=== PATIENT | male | born 1970 | race Caucasian/White ===

== ENCOUNTER 2024-04-23 19:56 | Observation (INO) | payer BC ==
[~2024-04-23] VITALS: Ht 182.9 cm; Wt 94.6 kg
[2024-04-23 21:04] LABS: BASO # 0.1 10^3/uL (0.0-0.2); BASO % 1.4 % (0.0-1.0); EOS # 0.2 10^3/uL (0.0-0.5); EOS % 2.8 % (0.0-3.0); HEMATOCRIT 43.7 % (42.0-52.0); HEMOGLOBIN 15.4 g/dl (13.5-17.5); LYMPH % 35.3 % (24.0-44.0); MEAN CORPUSCULAR HGB CONC 35.2 g/dl (32.0-36.5); MEAN CORPUSCULAR VOLUME 93.8 fl (80.0-96.0); MONO # 0.7 10^3/uL (0.0-0.8); MONO % 8.2 % (2.0-8.0); NEUTROPHILS # 4.3 10^3/uL (1.5-8.5); NEUTROPHILS % 51.4 % (36.0-66.0); PLATELET COUNT, AUTOMATED 257 10^3/uL (150-450); RED BLOOD COUNT 4.66 10^6/uL (4.30-6.10); WHITE BLOOD COUNT 8.4 10^3/uL (4.0-10.0)
[2024-04-23 21:07] LABS: CK-MB VALUE MASS 3.9 NG/ML (<3.6); ETHYL ALCOHOL (ETHANOL) 0.216 % (0.000-0.010); LIPASE 54 U/L (12-53)
[2024-04-23 21:08] LABS: AMYLASE 89 U/L (30-118)
[2024-04-23 21:09] LABS: ALBUMIN 3.8 G/DL (3.2-5.2); ALKALINE PHOSPHATASE 58 U/L (46-116); ALT/SGPT 51 U/L (7.0-40); AST/SGOT 43 U/L (<34); BILIRUBIN,DIRECT 0.1 MG/DL (<0.4); BILIRUBIN,TOTAL 0.4 MG/DL (0.3-1.2); CPK CREATINE PHOSPHOKINASE 443 U/L (46-171); MB/CK RELATIVE INDEX 0.88 (< OR =4); TOTAL PROTEIN 7.6 G/DL (5.7-8.2)
[2024-04-23 21:14] LABS: APPEARANCE, URINE CLEAR (CLEAR); BACTERIA, URINE AUTO NEGATIVE (NEGATIVE); BILIRUBIN, URINE AUTO NEGATIVE (NEGATIVE); BLOOD, URINE BLOOD NEGATIVE (NEGATIVE); COLOR, URINE YELLOW (YELLOW); GLUCOSE, URINE (UA) AUTO NEGATIVE (NEGATIVE); KETONE, URINE AUTO NEGATIVE (NEGATIVE); LEUKOCYTE ESTERASE, URINE AUTO NEGATIVE (NEGATIVE); MUCUS, URINE SMALL (NEGATIVE); NITRITE, URINE AUTO NEGATIVE (NEGATIVE); PROTEIN, URINE AUTO NEGATIVE (NEGATIVE); RBC, URINE AUTO 0 /HPF (0-3); SPECIFIC GRAVITY URINE AUTO 1.015 (1.002-1.035); SQUAMOUS EPITHELIAL CELL UR AU 0 /HPF (0-6); UROBILINOGEN, URINE AUTO 0.2 mg/dL (0.0-2.0); WBC, URINE AUTO 0 /HPF (0-3)
[2024-04-23] MEDS: ONDANSETRON 4MG 2ML VIAL IV ONE (21:29)
[2024-04-23 21:30] LABS: AMPHETAMINES LEVEL URINE NEGATIVE (NEGATIVE); BARBITURATES URINE NEGATIVE (NEGATIVE); CANNABINOIDS URINE NEGATIVE (NEGATIVE); COCAINE METABOLITE URINE NEGATIVE (NEGATIVE); METHADONE URINE NEGATIVE (NEGATIVE); OPIATES URINE NEGATIVE (NEGATIVE); PHENCYCLIDINE URINE NEGATIVE (NEGATIVE)
[2024-04-23] MEDS: MORPHINE 4 MG/ML 1ML VIAL IV PRN (21:30)
[2024-04-23 21:31] LABS: BENZODIAZEPINES URINE NEGATIVE (NEGATIVE)
[2024-04-23 21:33] LABS: BLOOD UREA NITROGEN 13 MG/DL (9-23); CALCIUM LEVEL 9.4 MG/DL (8.5-10.1); CARBON DIOXIDE LEVEL 28 MMOL/L (20-31); CHLORIDE LEVEL 107 MMOL/L (98-107); CREATININE FOR GFR 0.94 MG/DL (0.70-1.30); GLOMERULAR FILTRATION RATE > 60.0 (>56); GLUCOSE, FASTING 114 MG/DL (60-100); POTASSIUM SERUM 4.5 MMOL/L (3.5-5.1); SODIUM LEVEL 142 MMOL/L (136-145)
[2024-04-23] MEDS ORDERED: ISOVUE-370 76% 100ML VIAL As Ordered ONE (21:34)
[2024-04-23] MEDS ORDERED: traMADol 50 MG TAB PO PRN (23:15)
[2024-04-24] MEDS: NS 1,000 ML IV SCH (00:20)
[2024-04-24] MEDS: PANTOPRAZOLE 40MG VIAL IV ONE (00:20)
[2024-04-24] MEDS: KETOROLAC 30 MG/ML 1ML VIAL IV STA (00:20)
[2024-04-24] MEDS: ACETAMINOPHEN 500 MG TAB PO SCH (00:33)
[2024-04-24] MEDS: MORPHINE 4 MG/ML 1ML VIAL IV PRN (01:21)
[2024-04-24] MEDS ORDERED: AMLO1TAB24 PO (01:54)
[2024-04-24] MEDS ORDERED: MONT10TA97 PO (01:54)
[2024-04-24] MEDS ORDERED: BISO1TAB17 PO (01:54)
[2024-04-24] MEDS ORDERED: ADV100INH INH (01:54)
[2024-04-24] MEDS ORDERED: CLAR10TA7 PO (01:54)
[2024-04-24] MEDS ORDERED: HOME MED LIST COMPLETE! XX SCH (01:55)
[2024-04-24] MEDS ORDERED: KETOROLAC 30 MG/ML 1ML VIAL IV PRN (05:00)
[2024-04-24 06:24] LABS: HEMOGLOBIN 13.9 g/dl (13.5-17.5); MEAN CORPUSCULAR HEMOGLOBIN 32.6 pg (27.0-33.0); MEAN CORPUSCULAR HGB CONC 35.6 g/dl (32.0-36.5); MEAN CORPUSCULAR VOLUME 91.5 fl (80.0-96.0); PLATELET COUNT, AUTOMATED 195 10^3/uL (150-450); RED BLOOD COUNT 4.26 10^6/uL (4.30-6.10); WHITE BLOOD COUNT 9.1 10^3/uL (4.0-10.0)
[2024-04-24 06:57] LABS: BLOOD UREA NITROGEN 11 MG/DL (9-23); CALCIUM LEVEL 8.1 MG/DL (8.5-10.1); CARBON DIOXIDE LEVEL 26 MMOL/L (20-31); CHLORIDE LEVEL 107 MMOL/L (98-107); CREATININE FOR GFR 0.77 MG/DL (0.70-1.30); GLOMERULAR FILTRATION RATE > 60.0 (>56); GLUCOSE, FASTING 96 MG/DL (60-100); SODIUM LEVEL 139 MMOL/L (136-145)
[2024-04-24 08:30] VITALS: BP 124/86; TEMP 98.1; O2SAT 99
[2024-04-24] MEDS ORDERED: PERCOCET 5MG/325MG TAB PO PRN (09:00)
[2024-04-24] MEDS: KETOROLAC 30 MG/ML 1ML VIAL IV SCH (09:35)
[2024-04-24] MEDS: LIDOCAINE 5% (LIDODERM) PATCH TD SCH (09:35)
[2024-04-24] MEDS: LORATADINE 10 MG TAB PO SCH (09:35)
[2024-04-24] MEDS: MONTELUKAST 10 MG TAB PO SCH (09:36)
[2024-04-24] MEDS: CYCLOBENZAPRINE 5MG TABLET PO SCH (09:36)
[2024-04-24] MEDS: amLODIPine 5 MG TAB PO SCH (09:37)
[2024-04-24 10:15] VITALS: BP 126/85
[2024-04-24] MEDS: BISOPROLOL FUM 2.5 MG PER 1/2TAB PO SCH (10:15)
[2024-04-24] MEDS: ADVAIR HFA 45/21MCG INHALER INH SCH (11:12)
[2024-04-24] MEDS ORDERED: MORPHINE 4 MG/ML 1ML VIAL IV PRN (11:15)
[2024-04-24 12:00] VITALS: BP 128/85; TEMP 98.2; O2SAT 100
[2024-04-24] MEDS: ENOXAPARIN 40MG/0.4ML SYRINGE (J1650 PER 10MG) SC SCH (13:51)
[2024-04-24] MEDS ORDERED: LIDO1PAD TOP (16:34)
[2024-04-24] MEDS ORDERED: CYCL5TAB PO (16:34)
[2024-04-24] MEDS ORDERED: OXYC1TAB23 PO (16:34)
[2024-04-24] MEDS ORDERED: IBUP-1114 PO (16:40)
== END 2024-04-24 17:10 | disposition home or self-care (01) ==
LOC: M ED 19:56 → M ED INP 19:57 → M MSPAV 04-24 08:29
PROVIDERS: ADMIT Preventive Medicine Undersea and Hyperbaric Medicine; ATTEND Internal Medicine
DX: T14.8XXA Other injury of unspecified body region, initial encounter (principal); S27.0XXA Traumatic pneumothorax, initial encounter; M54.50 Low back pain, unspecified; M51.34 Other intervertebral disc degeneration, thoracic region; M62.830 Muscle spasm of back; W17.89XA Other fall from one level to another, initial encounter; W17.4XXA Fall from dock, initial encounter; Y92.9 Unspecified place or not applicable; Y93.9 Activity, unspecified; Y99.9 Unspecified external cause status; F10.10 Alcohol abuse, uncomplicated; I10 Essential (primary) hypertension; J30.1 Allergic rhinitis due to pollen; J45.20 Mild intermittent asthma, uncomplicated; Z79.899 Other long term (current) drug therapy; Z79.51 Long term (current) use of inhaled steroids
CPT/HCPCS: 36415; 71045; 71046; 71260; 72128; 72131; 74177; 80048; 80076; 80307; 81001; 82077; 82150; 82550; 82553; 83605; 83690; 84484; 85025; 85027; 86850; 86900; 86901; 93041; 94640; 94760; 96361; 96372; 96374; 96375; 96376; 99285; J1650; J1885; J2405; J2470; Q9967